=== PATIENT | male | born 1975 | race Caucasian/White ===

== ENCOUNTER 2023-01-18 09:27 | Outpatient (CLI) | payer OTHER, SELFPAY ==
[2023-01-18 10:12] LABS: Hematocrit 43.9 % (42.0-52.0); Hemoglobin 13.6 g/dL (14.0-18.0); Mean Corpuscular Hemoglobin 22.6 pg (26-34); Mean Corpuscular Volume 72.8 fl (80-100); Mean Platelet Volume 10.6 fl (7.4-10.4); Platelet Count Result 234 k/mm3 (150-375); Red Blood Count 6.03 M/mm3 (4.6-6.20); Red Cell Distribution Width 19.1 % (11.5-14.5); White Blood Count 9.2 K/mm3 (4.5-10.0)
[2023-01-18 10:48] LABS: Alanine Aminotransferase 22 U/L (6-50); Albumin Level 4.5 g/dL (3.5-5.1); Alkaline Phosphatase 71 U/L (38-126); Anion Gap 4 mmol/L (8-16); Aspartate Amino Transferase 23 U/L (17-59); Bilirubin,Total 0.5 mg/dL (0.2-1.3); Blood Urea Nitrogen 12 mg/dL (9-20); Calcium 8.4 mg/dL (8.4-10.2); Carbon Dioxide 31 mmol/L (22-30); Chloride 106 mmol/L (98-107); Cholesterol 160 mg/dL (0-200); Estimated Glomerular Filt Rate > 60; Glucose 105 mg/dL (65-110); HDL Direct 31 mg/dL; Potassium 4.4 mmol/L (3.4-5.0); Sodium 141 mmol/L (137-145); Triglycerides 121 mg/dL (<150)
[2023-01-18 11:01] LABS: LDL Cholesterol Direct 101 mg/dL
[2023-01-18 11:18] LABS: Prostate Specific Antigen 0.5 ng/mL (< OR = 4.0)
== END 2023-01-18 09:28 | disposition home or self-care (01) ==
LOC: ANHLAB 09:29
PROVIDERS: PCP Family Medicine; Visit Provider Family Medicine
DX: D64.9 Anemia, unspecified (principal); Z13.220 Encounter for screening for lipoid disorders; Z12.5 Encounter for screening for malignant neoplasm of prostate; K21.9 Gastro-esophageal reflux disease without esophagitis
CPT/HCPCS: 36415; 80053; 80061; 84153; 84443; 85027; G0103

== ENCOUNTER 2023-12-29 14:02 | Outpatient (CLI) | payer OTHER, SELFPAY ==
[2023-12-29 14:49] LABS: Mean Corpuscular Hemoglobin 25.6 pg (26-34); Mean Corpuscular Volume 80.1 fl (80-100); Mean Platelet Volume 11.1 fl (7.4-10.4); Platelet Count Result 190 k/mm3 (150-375); Red Blood Count 6.24 M/mm3 (4.6-6.20); Red Cell Distribution Width 14.6 % (11.5-14.5); White Blood Count 9.1 K/mm3 (4.5-10.0)
[2023-12-29 15:23] LABS: Iron 61 ug/dL (49-181)
[2023-12-29 15:32] LABS: Percent Iron Saturation 12 % (20-50)
[2024-01-04 07:33] LABS: Testosterone Free 58.1 pg/mL (35.0-155.0); Testosterone Total 348 ng/dL (250-1100)
== END 2023-12-29 14:03 | disposition home or self-care (01) ==
PROVIDERS: PCP Family Medicine; Visit Provider Family Medicine
DX: D50.0 Iron deficiency anemia secondary to blood loss (chronic) (principal); R68.82 Decreased libido
CPT/HCPCS: 36415; 83540; 83550; 84402; 84403; 85027

== ENCOUNTER 2024-01-17 09:46 | Outpatient (CLI) | payer OTHER, SELFPAY ==
--- NOTE | ~2024-01-17 | XR_ITS ---
Clinical Indication: Bronchitis PA and lateral views of the chest: Comparison: 03/08/2020 Findings: The lungs are clear, without evidence of focal consolidation or pleural effusion. Cardiome diastinal silhouette is within normal limits. Bones and soft tissues are unremarkable. Impression: Normal chest. Reviewed, dictated and finalized at [facility]. Impression: Normal chest.
== END 2024-01-17 09:47 ==
PROVIDERS: PCP Family Medicine; Visit Provider Family Medicine
DX: J40 Bronchitis, not specified as acute or chronic (principal)
CPT/HCPCS: 71046

== ENCOUNTER 2025-01-22 09:49 | Outpatient (CLI) | payer OTHER, SELFPAY ==
[2025-01-22 10:36] LABS: Basophils Absolute Auto 0.1 K/mm3 (0.0-0.1); Basophils Percent Auto 1.2 % (0.2-1.2); Eosinophils Absolute Auto 0.2 K/mm3 (0-0.3); Eosinophils Percent Auto 2.8 % (0-4.4); Hematocrit 51.4 % (42.0-52.0); Hemoglobin 16.9 g/dL (14.0-18.0); Immature Granulocyte Absolute 0.03 K/mm3 (0.00-0.031); Immature Granulocyte Percent A 0.4 % (0-0.5); Lymphocytes Absolute Auto 2.58 K/mm3 (0.9-3.2); Lymphocytes Percent Auto 30.1 % (18.3-44.2); Mean Corpuscular HGB Conc 32.9 g/dl (32-36); Mean Corpuscular Hemoglobin 27.2 pg (26-34); Mean Corpuscular Volume 82.6 fl (80-100); Mean Platelet Volume 11.1 fl (7.4-10.4); Monocytes Percent Auto 11.8 % (2.6-8.5); Neutrophils Absolute Auto 4.6 K/mm3 (1.3-6.7); Neutrophils Percent Auto 53.7 % (45.5-73.1); Platelet Count Result 174 k/mm3 (150-375); Red Blood Count 6.22 M/mm3 (4.6-6.20); Red Cell Distribution Width 14.6 % (11.5-14.5); White Blood Count 8.6 K/mm3 (4.5-10.0)
[2025-01-22 10:56] LABS: Iron 52 ug/dL (49-181)
[2025-01-22 11:05] LABS: LDL Cholesterol Direct 94 mg/dL; Percent Iron Saturation 11 % (20-50)
[2025-01-22 11:25] LABS: Prostate Specific Antigen 0.5 ng/mL (< OR = 4.0)
[2025-01-22 11:54] LABS: Alanine Aminotransferase 29 U/L (6-50); Albumin Level 4.4 g/dL (3.5-5.1); Alkaline Phosphatase 76 U/L (38-126); Anion Gap 11 mmol/L (4-12); Aspartate Amino Transferase 23 U/L (17-59); Bilirubin,Total 0.5 mg/dL (0.2-1.3); Blood Urea Nitrogen 14 mg/dL (9-20); Calcium 9.5 mg/dL (8.4-10.2); Carbon Dioxide 27 mmol/L (22-30); Chloride 102 mmol/L (98-107); Cholesterol 161 mg/dL (0-200); Estimated Glomerular Filt Rate > 60; Glucose 103 mg/dL (65-110); HDL Direct 40 mg/dL; Potassium 4.8 mmol/L (3.4-5.0); Sodium 140 mmol/L (137-145); Triglycerides 125 mg/dL (<150)
== END 2025-01-22 09:50 | disposition home or self-care (01) ==
LOC: ANHLAB 09:50
PROVIDERS: PCP Family Medicine; Visit Provider Family Medicine
DX: D50.0 Iron deficiency anemia secondary to blood loss (chronic) (principal); Z12.5 Encounter for screening for malignant neoplasm of prostate; K21.9 Gastro-esophageal reflux disease without esophagitis; R68.82 Decreased libido; Z13.220 Encounter for screening for lipoid disorders
CPT/HCPCS: 36415; 80053; 80061; 82607; 82728; 83540; 83550; 84153; 84402; 84403; 85025; G0103

== ENCOUNTER 2025-02-22 14:37 | Outpatient (CLI) | payer OTHER, SELFPAY ==
--- OUTSIDE RECORDS SUMMARY | 2025-02-22 15:49 | XMS_ITS | Clinical Summary ---
Author Organization [facility] Address [address] [place] [id number] Care Team Providers Care Astrobiologist Name Role Phone Luis Eduardo Fortune MD Primary Care Provider Allergies No known active allergies Medications pantoprazole DR (PROTONIX) 40 mg EC tablet take 1 tablet by oral route every day 30 0 01/05/2017 Active ferrous sulfate 325 mg (65 mg of elemental iron) tablet take 1 tablet by oral route 2 times every day 60 2 01/20/2017 Active Active Problems No known active problems Family History Medical History Relation Name Comments Hypertension Mother 2 Hypertension; Migraines Mother 2 Migraines; Other Mother 2 Alive and well; Colon cancer Other Cancer, colon; Hypertension Other Hypertension; Lung cancer Other Cancer, lung; Migraines Other Migraines; Multiple sclerosis Other Multiple sclerosis; Prostate cancer Other Cancer, pros irizarry; Relation Name Status Comments Mother 1 Alive Mother 2 Other Social History Tobacco Use Types Packs/Day Years Used Date Smoking Tobacco: Never Alcohol Use Standard Drinks/Week Comments Yes 0 (1 standard drink = 0.6 oz pur e alcohol) Personal Safety Answer Date Recorded Getting School Help Needed Not on file 07/08 Sex and Gender Information Value Date Recorded Sex Assigned at Not on file 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 Gender Identity Not on file Sexual Orientation Not on file Obstetrics History Last Filed Vital Signs Vital Sign Reading Time Taken Comments Blood Pressure 148/84 07/08/2024 12:41 PM CDT Pulse 121 07/08/2024 12:41 PM CDT Temperature 39.5 C (103.1 F) 07/08/2024 12:41 PM CDT Respiratory Rate 22 07/08/2024 12:41 PM CDT Oxygen Saturation 95% 07/08/2024 12:41 PM CDT Inhaled Oxygen Concentration - - Weight 150.1 kg (331 lb) 07/08/2024 12:41 PM CDT Height - - Body Mass Index - - Plan of Treatment Health Maintenance Due Date Last Done Comments Depression Screening 1974 Hepatitis C Screening 1974 Prostate Cancer Screening-PSA 1974 DTaP/Tdap/Td Vaccine (1 - Tdap) 1985 Hepatitis B Screening 1992 Regular Well Visit/Exam 18-64 1992 Influenza Vaccine (#1) 2024 Zoster Vaccine (1 of 2) 2024 Colon Cancer Screening-Colonoscopy 01/18/20272016 Pneumococcal vaccine <65 Aged Out No longer eligible based on patient's age to complete this topic Procedures Procedure Name Priority Date/Time Associated Diagnosis Comments COLONOSCOPY REPORT 01/18/2017 from Last 3 Months or Most Recently Relevant to Health Maintenance Results * COLONOSCOPY REPORT (01/18/2017) Anatomical Region Laterality Modality Other Narrative 01/18/2017 Ordered by an unspecified provider. Historical Provider GI PROCEDURE ORDERABLES F inal Result from Last 3 Months or Most Recently Relevant to Health Maintenance Insurance [employer] Care Teams Astrobiologist Relationship Specialty Start Date End Date Luis Eduardo Fortune MD [address] [place] [address] PCP - General Family Medicine 07/08/24
--- OUTSIDE RECORDS SUMMARY | 2025-02-22 15:49 | XMS_ITS | Referral Summary ---
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 us Historical Provider GI PROCEDURE ORDERABLES F inal Result from Last 3 Months or Most Recently Relevant to Health Maintenance Insurance [employer] OPEN [employer] Member Subscriber Plan / Payer (Ef fective 2023-Present) Name:Dani Quintero Relation to Subscriber:Self Name:Dani Quintero Payer ID:[id number] Type:[employer] HMO/PPO Address: [facility] [id number] [place] [address] Care Teams Tension Machine Operator Relationship Specialty Start Date End Date Luis Eduardo Fortune MD [address] [place] [address] PCP - General Family Medicine 07/08/24
== END 2025-02-22 14:38 | disposition home or self-care (01) ==
LOC: ANHPFT 14:38
PROVIDERS: PCP Family Medicine; Visit Provider Family Medicine
DX: J41.0 Simple chronic bronchitis (principal)
CPT/HCPCS: 94060; 94726; 94729